=== PATIENT | female | born 1955 | race African-American/Black ===

== ENCOUNTER 2019-01-01 07:22 | Emergency (ER) | payer MEDICARE ==
[~2019-01-01] VITALS: Ht 162.6 cm; Wt 64.0 kg
[2019-01-01] MEDS ORDERED: ACETAMINOPHEN 500MG TABLET PO ONE (07:45)
[2019-01-01] MEDS ORDERED: MORPHINE SULFATE 4 MG/ML CPJ (NOT FOR IM USE) IV ONE (09:00)
[2019-01-01] MEDS ORDERED: KETAMINE HCL 50 MG/ML 10ML IV ONE (10:00)
[2019-01-01] MEDS ORDERED: PROPOFOL 200MG/20ML VIAL IV ONE (10:00)
[2019-01-01 11:30] VITALS: BP 133/76
== END 2019-01-01 11:30 | disposition home or self-care (01) ==
LOC: ER 07:22
DX: S82.55XA Nondisplaced fracture of medial malleolus of left tibia, initial encounter for closed fracture (principal); S82.832A Other fracture of upper and lower end of left fibula, initial encounter for closed fracture; I10 Essential (primary) hypertension; M19.90 Unspecified osteoarthritis, unspecified site; Z91.041 Radiographic dye allergy status; V78.4XXA Person boarding or alighting from bus injured in noncollision transport accident, initial encounter; Y93.89 Activity, other specified; Y92.520 Airport as the place of occurrence of the external cause
CPT/HCPCS: 27840; 73600; 73610; 94640; 96374; 99284; J2270; J2704; J3490